=== PATIENT | female | born 1950 | race Caucasian/White ===

== ENCOUNTER 2018-01-09 11:36 | Emergency (ER) | payer MEDICARE, MEDICAID ==
[~2018-01-09] VITALS: Ht 162.6 cm; Wt 86.2 kg
[~2018-01-09 11:36] MED LIST: AZIT250T PO; IBUP-1984 PO; LEVO25TA7 PO; MUPI15CR TOP; OMEP40CA37 PO
[2018-01-09 11:39] VITALS: BP 132/81
== END 2018-01-09 12:34 | disposition home or self-care (01) ==
LOC: ER 11:36
DX: S50.02XA Contusion of left elbow, initial encounter (principal); K21.9 Gastro-esophageal reflux disease without esophagitis; E78.00 Pure hypercholesterolemia, unspecified; Z87.442 Personal history of urinary calculi; Z88.1 Allergy status to other antibiotic agents; Z79.899 Other long term (current) drug therapy; W11.XXXA Fall on and from ladder, initial encounter; Y93.89 Activity, other specified; Y92.89 Other specified places as the place of occurrence of the external cause; Y99.8 Other external cause status
CPT/HCPCS: 73080; 99284; A6449

== ENCOUNTER 2018-07-21 09:28 | Emergency (ER) | payer MEDICARE, OTHER ==
[~2018-07-21] VITALS: Ht 160 cm; Wt 85.9 kg
[2018-07-21] MEDS ORDERED: ibuprofen 200mg tablet PO ONE (11:05)
[2018-07-21] MEDS ORDERED: HYDROcodone/acetaminophen 10/325mg tab PO ONE (11:50)
[2018-07-21 11:57] VITALS: BP 149/74
== END 2018-07-21 12:02 | disposition home or self-care (01) ==
LOC: ER 09:29
DX: M79.18 Myalgia, other site (principal); T88.1XXA Other complications following immunization, not elsewhere classified, initial encounter; M79.602 Pain in left arm; E78.00 Pure hypercholesterolemia, unspecified; K21.9 Gastro-esophageal reflux disease without esophagitis; Z88.1 Allergy status to other antibiotic agents; Z79.2 Long term (current) use of antibiotics; Z79.899 Other long term (current) drug therapy
CPT/HCPCS: 99283